=== PATIENT | female | born 1965 | race Caucasian/White ===

== ENCOUNTER 2019-06-07 03:49 | Outpatient (CLI) | payer OTHER | END 2019-06-07 03:50 | disposition short-term general hospital (02) | LOC: EMS 03:49 | PROVIDERS: ATTEND Surgery | DX: I46.9 Cardiac arrest, cause unspecified (principal) | CPT/HCPCS: A0425; A0433 ==

== ENCOUNTER 2023-01-07 12:24 | Outpatient (CLI) | payer MEDICARE, OTHER ==
--- NOTE | 2023-01-07 21:16 | XRAY Report ---
PROCEDURE: Lumbar Spine 2 View INDICATIONS: STRAIN OF MUSCLE,FASCIA AND TENDON OF LOWER BACK TECHNIQUE: 2 views of the lumbar spine were acquired. COMPARISON: None. FINDINGS: Bones: 5 [id number] vertebrae are present. There is normal bony alignment. No vertebral body compression fractures. No suspicious bony lesions. Disc space narrowing at L4-5 and L5-S1. Facet ar throsis at L4-5 and L5-S1. Mild rightward curvature of the lumbar spine. Soft tissues: Overlying bowel gas pattern is normal. No suspicious soft tissue calcifications. IMPRESSION: 1. Degenerative disc disease at L4-5 and L5-S1. 2. No acute abnormality. Reviewed by: Santy Ortega on 01/07/2023 8:14 PM [facility] Approved by: Santy Ortega on 01/07/2023 8:14 PM [facility] Station ID: [id number]
== END 2023-01-07 12:25 | disposition home or self-care (01) ==
LOC: DI 12:24
PROVIDERS: ATTEND Family Medicine
DX: S39.012A Strain of muscle, fascia and tendon of lower back, initial encounter (principal); M51.36 Other intervertebral disc degeneration, lumbar region; M51.37 Other intervertebral disc degeneration, lumbosacral region

== ENCOUNTER 2023-05-29 11:45 | Outpatient (CLI) | payer MEDICARE, OTHER | END 2023-05-29 12:00 | disposition home or self-care (01) | LOC: LAB.N 11:45 | PROVIDERS: ATTEND Nurse Practitioner | DX: N39.0 Urinary tract infection, site not specified (principal) | CPT/HCPCS: 87077; 87086; 87181 ==